=== PATIENT | female | born 1965 | race African-American/Black ===

== ENCOUNTER 2018-04-24 08:28 | Emergency (ER) | payer MEDICARE, MEDICAID ==
[~2018-04-24] VITALS: Ht 160 cm; Wt 76.0 kg
[~2018-04-24 08:28] MED LIST: COG2 PO; FLUP5TAB PO; RISO02 PO
[2018-04-24 09:38] VITALS: BP 123/80
== END 2018-04-24 10:42 | disposition left against medical advice (07) ==
LOC: ER 08:28
DX: M79.1 Myalgia (principal); J34.89 Other specified disorders of nose and nasal sinuses; Z53.21 Procedure and treatment not carried out due to patient leaving prior to being seen by health care provider
CPT/HCPCS: 81025